=== PATIENT | female | born 2000 | race Caucasian/White ===

== ENCOUNTER 2019-01-17 20:32 | Emergency (ER) | payer BC ==
[2019-01-17 20:50] VITALS: BP 120/80
--- NOTE | 2019-01-17 21:26 | UC ---
Throat Pain/Nasal Logan HPI - HPI Summary HPI Summary: 1. SEVERAL DAYS OF SORE THROAT, PAIN WITH SWALLOWING, CONGESTION AND OVERALL MALAISE. YESTERDAY STARTED COUGHING. NO FEVER, NAUSEA/VOMITING. 2. SHE IS ALSO REQUESTING STD TESTING SHE HAS BEEN HAVING UNPROTECTED SEX WITH A NEW MALE PARTNER OVER THE PAST 1 MONTH. SHE IS ASYMPTOMATIC AND IS REQUESTING TESTING OUT OF AN ABUNDANCE OF CAUTION. HAS IUD FOR CONTRACEPTION. - History of Current Complaint Chief Complaint: UCGeneralIllness Stated Complaint: SORE THROAT Time Seen by Provider: 01/17/19 20:56 Hx Obtained From: Patient Hx Last Menstrual Period: december 27 Onset/Duration: Gradual Onset, Lasting Days, Still Present Severity: Moderate Pain Intensity: 4 Pain Scale Used: 0-10 Numeric Cough: Nonproductive Associated Signs & Symptoms: Positive: Nasal Discharge. Negative: Hoarseness, Fever - Allergies/Home Medications Allergies/Adverse Reactions: Allergies Allergy/AdvReac Type Severity Reaction Status Date / Time MS Citalopram [From Celexa] Allergy Vomiting Unverified 04/24/15 16:50 MS Peanut Oil [Peanut Oil] Allergy itchy feet Unverified 04/24/15 16:50 PMH/Surg Hx/FS Hx/Imm Hx Previously Healthy: Yes - Surgical History Surgical History: None - Family History Known Family History: Positive: Non-Contributory - Social History Alcohol Use: None Substance Use Type: None Smoking Status (MU): Never Smoked Tobacco - Immunization History Vaccination Up to Date: Yes Review of Systems All Other Systems Reviewed And Are Negative: Yes Constitutional: Positive: Negative ENT: Positive: Sore Throat, Nasal Discharge Respiratory: Positive: Cough Cardiovascular: Positive: Negative Gastrointestinal: Positive: Negative Genitourinary: Positive: Negative Physical Exam Triage Information Reviewed: Yes Appearance: Well-Appearing, No Pain Distress, Well-Nourished Vital Signs: Initial Vital Signs Temp 99.3 F 01/17/19 20:41 Pulse 89 01/17/19 20:41 Resp 18 01/17/19 20:41 BP 120/80 01/17/19 20:41 Pulse Ox 98 01/17/19 20:41 Laboratory Tests 01/17/19 20:48 Group A Strep Rapid Negative Eyes: Positive: Conjunctiva Clear ENT: Positive: Hearing grossly normal, TMs normal, Tonsillar exudate. Negative : Pharyngeal erythema, Tonsillar swelling, Muffled voice, Hoarse voice Neck: Positive: Supple, Tenderness @ - SPFL CERVICAL LAD, Enlarged Nodes @ - SPFL CERVICAL LAD Respiratory Exam: Normal Cardiovascular Exam: Normal Abdomen Description: Positive: Nontender, Soft Musculoskeletal: Positive: No Edema Neurological: Positive: Alert Psychological: Positive: Age Appropriate Behavior Skin: Negative: Rashes Throat Pain/Nasal Course/Dx - Course Course Of Treatment: STREP TEST NEGATIVE. LIKELY VIRAL TONSILLITIS. OTC MEDS NEEDED FOR DISCOMFORT. MAGIC MOUTHWASH ALSO PROVIDED. ENCOURAGED HYDRATION. URINE COLLECTED TO TEST FOR GONORRHEA AND CHLAMYDIA TODAY. PATIENT DECLINES BLOOD TEST FOR HIV AND SYPHILIS. STATES SHE WILL [facility]. - Differential Dx/Diagnosis Provider Diagnosis: Acute viral tonsillitis, Exposure to potentially hazardous body fluids Discharge - Sign-Out/Discharge Documenting (check all that apply): Patient Departure All imaging exams completed and their final reports reviewed: No Studies - Discharge Plan Condition: Stable Disposition: HOME Prescriptions: Magic Mouth Was-JOSE/MAAL/LIDO* 5 - 10 ml SWISH SWAL QID PRN #150 ml PRN Reason: Sore Throat Patient Education Materials: Sexually Transmitted Diseases (ED), Tonsillitis ( ED) Referrals: Janny Choi ICT DEVELOPER [Primary Care Provider] - If Needed Additional Instructions: STREP TEST NEGATIVE. YOUR SYMPTOMS ARE LIKELY VIRALLY MEDIATED AND SHOULD RESOLVE ON THEIR OWN WITH TIME. NO INDICATION FOR ANTIBIOTICS AT PRESENT. REST, HYDRATE, OTC CHLORASEPTIC OR CEPACOL LOZENGES AND/OR IBUPROFEN FOR SORE THROAT NEEDED. ONCE SYMPTOMS RESOLVED - NEW TOOTHBRUSH DO NOT SHARE FOOD, DRINK, UTENSILS. SEEK FOLLOW-UP IF YOU ARE NOT IMPROVING OVER THE NEXT 1-2 WEEKS. URINE SENT TO TEST FOR GONORRHEA AND CHLAMYDIA TODAY. WE WILL CALL YOU WITH ANY ABNORMAL RESULTS. [facility] Address: [address] [place] [address] - Billing Disposition and Condition Condition: STABLE Disposition: Home
[2019-01-19 13:53] LABS: Neisseria gonorrhoeae (GC) RNA Negative (Negative)
== END 2019-01-17 21:31 | disposition home or self-care (01) ==
LOC: UCEAST 20:32
DX: J03.90 Acute tonsillitis, unspecified (principal); B34.9 Viral infection, unspecified; Z77.21 Contact with and (suspected) exposure to potentially hazardous body fluids
CPT/HCPCS: 87491; 87591; 87651; 99212; G0463